=== PATIENT | female | born 1990 | race Hispanic/Latino ===

== ENCOUNTER 2018-12-25 06:43 | Emergency (ER) | payer OTHER ==
[2018-12-25] MEDS ORDERED: Ketorolac Tromethamine 30 MG/ML VIAL ONE (08:41)
--- NOTE | 2018-12-25 09:00 | ULT ---
TRANSABDOMINAL PELVIC ULTRASOUND: DATE: 12/25/2018. PROVIDED CLINICAL HISTORY: , heavy vaginal bleeding. FINDINGS: The uterus measures about 11.6 x 6.5 x 7.8 cm. There is no evidence for an intrauterine gestational sac. There is prominence of the contents of the endometrial canal measuring up to 3 cm in thickness. There is a homogeneous appearance to the contents of the uterine endometrial canal. The right and left ovaries appear sonographically unremarkable. Color Doppler and spectral analysis of the ovarian waveforms demonstrates normal flow bilaterally. There is a small amount of possibly p hysiologic free pelvis fluid. IMPRESSION: 1. No evidence for intrauterine gestational sac. 2. Conspicuous distention of the uterine endometrial canal. This could be on the basis of blood pro ducts. The homogeneous appearance of this material suggests that this does not represent retained pr oducts of conception, though this cannot be completely excluded. Gestational trophoblastic disease c ould also be considered but is felt less likely. Followup beta HCG values recommended. POS: ROMERO
== END 2018-12-25 09:00 | disposition home or self-care (01) ==
LOC: ERS 06:43
DX: O03.9 Complete or unspecified spontaneous abortion without complication (principal); F17.210 Nicotine dependence, cigarettes, uncomplicated; F41.9 Anxiety disorder, unspecified; J45.909 Unspecified asthma, uncomplicated
CPT/HCPCS: 36415; 76856; 86900; 86901; 93976; 96374; J1885